=== PATIENT | female | born 1990 | race Caucasian/White ===

== ENCOUNTER 2016-09-10 03:26 | Emergency (ER) | payer OTHER ==
[2016-09-10] MEDS ORDERED: PHENAZOPYRIDINE 100 MG TABLET PO STA (03:56)
[2016-09-10] MEDS ORDERED: NITROFURANTOIN MACRO 100 MG CAPSULE PO STA (03:56)
[2016-09-10] MEDS ORDERED: NITROFURANTOIN MACRO 100 MG CAPSULE PO ONE (03:58)
[2016-09-10] MEDS ORDERED: PHENAZOPYRIDINE 100 MG TABLET PO ONE (03:58)
== END 2016-09-10 04:04 | disposition home or self-care (01) ==
DX: N39.0 Urinary tract infection, site not specified (principal)
CPT/HCPCS: 81001; 81025; 87077; 87086; 87181; 99283; A9270